=== PATIENT | female | born 1945 | race Caucasian/White ===

== ENCOUNTER 2017-05-24 15:04 | Inpatient (IN) | payer MEDICARE ==
[~2017-05-24] VITALS: Ht 165.1 cm; Wt 75.7 kg
[2017-05-24 15:05] VITALS: BP 144/63; PULSE 76; RESP 16; TEMP 98.7; O2SAT 99
--- NOTE | 2017-05-24 15:24 | PD ---
Physical Exam Time Seen by Provider: 15:22 Narrative 72 y/o female fell 05/01/17, reports that she had an outpatient xray 2 days ago which revealed a L elbow fracture. Vital signs reviewed. Seen at triage desk. Awaiting bed placement. Data Data Last Documented VS Vital Signs Date Time Temp Pulse Resp B/P Pulse Ox O2 Delivery O2 Flow Rate FiO2 05/24/17 15:05 98.7 76 16 144/63 99 Room Air [facility] Medical Record Reviewed: Yes Supervised Visit with DANIELITO: No Jeremiah Caldwell May 24, 2017 15:24
[2017-05-24] MEDS ORDERED: LEVO25TA4 PO (16:05)
[2017-05-24] MEDS ORDERED: LISI40TA PO (16:05)
[2017-05-24] MEDS ORDERED: PROZ20CA11 PO (16:05)
--- NOTE | 2017-05-24 16:19 | RADRPT ---
EXAM DATE/TIME: 05/24/2017 15:48 [facility] COMPARISON: No previous studies available for comparison. INDICATIONS : Left elbow pain, loss of motion MEDICAL HISTORY : None. SURGICAL HISTORY : None. ENCOUNTER: Initial ACUITY: 3 weeks PAIN SCORE: 3/10 LOCATION: Left elbow FINDINGS: There is evidence of an acute fracture involving the radial head with involvement of the articular krishnan rface. There is also evidence of an acute displaced fracture of the capitellum of the distal humerus . Elbow joint effusion is noted. CONCLUSION: 1. Acute displaced fracture involving the capitellum of the distal humerus. 2. Acute fracture involving the radial head. 3. Elbow joint effusion. Sathish Millard MD on May 24, 2017 at 16:14 Board Certified Radiologist. This report was verified electronically.
--- NOTE | 2017-05-24 16:54 | PD ---
HPI Chief Complaint: Injury Time Seen by Provider: 16:53 Travel History International Travel<30 days: No Contact w/Intl Traveler<30days: No Traveled to known affect area: No History of Present Illness HPI 72-year-old female presents to the emergency Department with complaint of a left elbow fracture that she had x-rayed 2 days ago at [facility]. She says the left elbow fracture occurred on May 01 after a fall and she just followed up 2 days ago. She was told to follow up and to the orthopedic doctors office was not able to see her for a week to a week and a half. The patient says she does not have a scheduled appointment at this time because she thought it was too long and decided to come to the emergency department for follow-up. Denies paresthesias, loss of sensation to the affected extremity. Is able to fully flex the left arm, but is unable to fully extend the left arm. Denies fever. Patient reports she has had issues with vomiting for the past few weeks, prior to the fall, and has and is following up with her primary care provider in regards to this issue; reports last vomiting one time this morning and reports vomiting only a few times since the vomiting started. Has been taking exgq-oyl-mrkqptw medications for symptom management. No known allergies. Has no other medical complaints. No other modifying factors or associated signs and symptoms. PFSH Past Medical History Depression: Yes Hypertension: Yes Thyroid Disease: Yes Past Surgical History Surgical History: No Previous Surgery Social History Alcohol Use: No Tobacco Use: No Substance Use: No Allergies-Medications (Allergen,Severity, Reaction): Coded Allergies: No Known Allergies (Unverified , 05/24/17) Reported Meds & Prescriptions Reported Meds & Active Scripts Active Reported Levothyroxine (Levothyroxine Sodium) 25 Mcg Tab Unknown Dose PO DAILY Prozac (Fluoxetine HCl) 20 Mg Cap 20 Mg PO DAILY Lisinopril 40 Mg Tab 40 Mg PO BID Review of Systems Except as stated in HPI: all other systems reviewed are Neg Physical Exam Narrative GENERAL: Well-nourished, well-developed elderly, female patient, in no acute distress; afebrile, nontoxic-appearing SKIN: Warm and dry. HEAD: Atraumatic. Normocephalic. EYES: Pupils equal and round. No scleral icterus. No injection or drainage. ENT: Mucosa pink and moist. Airway patent. NECK: Trachea midline. CARDIOVASCULAR: Regular rate. RESPIRATORY: No accessory muscle use. GASTROINTESTINAL: Rounded. MUSCULOSKELETAL: Left elbow with full flexion and almost full extension; without edema;, erythema, ecchymosis; without tenderness on palpation; with full svp group director strength; sensory intact; 2+ radial pulse. Left Upper extremity supple and nontense with 2+ radial pulse and sensory intact. No obvious deformities. No clubbing. No cyanosis. No edema. NEUROLOGICAL: Awake and alert. Oriented 3. No obvious cranial nerve deficits. Motor grossly within normal limits. Normal speech. PSYCHIATRIC: Appropriate mood and affect; insight and judgment normal. Data Data Last Documented VS Vital Signs Date Time Temp Pulse Resp B/P Pulse Ox O2 Delivery O2 Flow Rate FiO2 05/24/17 15:05 98.7 76 16 144/63 99 Room Air Orders Elbow, Complete (4 Vws) (05/24/17 ) Ct Elbow W/O Contrast (05/24/17 ) Splint Or Brace Apply/Monitor (05/24/17 17:48) Consult Orthopedic (05/24/17 ) Npo After Midnight W/ Po Meds (05/24/17 Dinner) Complete Blood Count With Diff (05/24/17 17:48) Comprehensive Metabolic Panel (05/24/17 17:48) Prothrombin Time / Inr (Pt) (05/24/17 17:48) Act Partial Throm Time (Ptt) (05/24/17 17:48) Electrocardiogram (05/24/17 17:48) Chest, Single Ap (05/24/17 17:48) Iv Access Insert/Monitor (05/24/17 17:48) Sodium Chloride 0.9% Flush (Ns Flush) (05/24/17 18:00) MDM Medical Decision Making Medical Screen Exam Complete: Yes Emergency Medical Condition: Yes Medical Record Reviewed: Yes Differential Diagnosis Elbow fracture, elbow dislocation, medical clearance Narrative Course 72-year-old female with left elbow fracture after fall on May 01. Patient had elbow x-rayed 2 days ago and was told to follow up with orthopedic. She call to schedule an appointment with an orthopedic doctor and they could not see her for a week to week and a half and she thought that was too long so she came to the emergency department for follow-up. Left elbow x-ray ordered in triage. 1645: Left elbow x-ray concludes acute displaced fracture involving the capitellum of the distal humerus, acute fracture involving the radial head, and elbow joint effusion. 1658: Call placed To orthopedic surgeon. 1749: Spoke with JODI Dick for orthopedics, and he recommended to admit the patient to medical with a consult to Dr. Garzon, CT left elbow, nothing by mouth after midnight, and left long-arm splint. Preop orders entered. 1754: Call out to RAMYA placed for admission. 1817: Spoke with RAMYA Guerra; report given and patient admitted. Physician Communication Physician Communication JODI Mariscal ortho RAMYA Guerra Diagnosis Primary Impression: Left elbow fracture Qualified Code: S42.402A - Left elbow fracture, closed, initial encounter Admitting Information Admitting Physician Requests: Admit Jessa Caceres May 24, 2017 16:54
[2017-05-24] MEDS ORDERED: SODIUM CHLORIDE 0.9% FLUSH 10 ML FLUSH IV FLUSH PRN ×2 (18:00→18:30)
--- NOTE | 2017-05-24 18:26 | RADRPT ---
EXAM DATE/TIME: 05/24/2017 18:03 [facility] COMPARISON: No previous studies available for comparison. INDICATIONS : Evaluate for pneumonia, pneumothorax, or communicable disease. Pre op for ORIF of elbow. MEDICAL HISTORY : None. SURGICAL HISTORY : None. ENCOUNTER: Initial ACUITY: 1 day PAIN SCORE: 0/10 LOCATION: Bilateral chest FINDINGS: A single view of the chest demonstrates the lungs to be symmetrically aerated without evidence of mas s, infiltrate or effusion. Small calcified granulomas within the right upper lobe. The cardiomediasti nal contours are unremarkable. Osseous structures are intact. CONCLUSION: No acute disease. Hans Lemus Jr., MD on May 24, 2017 at 18:24 Board Certified Radiologist. This report was verified electronically.
[2017-05-24] MEDS ORDERED: BISACODYL 10 MG SUPP RECTAL PRN (18:30)
[2017-05-24] MEDS ORDERED: NALOXONE HCL 0.4 MG/ML AMP IV PRN (18:30)
[2017-05-24] MEDS ORDERED: diphenhydrAMINE HCL 25 MG CAP PO PRN (18:30)
[2017-05-24] MEDS ORDERED: ACETAMINOPHEN/HYDROcodone 325 MG/5 MG TAB PO PRN (18:30)
[2017-05-24] MEDS ORDERED: ONDANSETRON HCL 4 MG/2 ML VIAL IVP PRN (18:30)
[2017-05-24] MEDS ORDERED: SENNOSIDES 8.6 MG TAB PO PRN (18:30)
[2017-05-24] MEDS ORDERED: ACETAMINOPHEN 325 MG TAB PO PRN (18:30)
[2017-05-24] MEDS ORDERED: LACTULOSE SYRUP 20 GM/30 ML CUP PO PRN (18:30)
[2017-05-24] MEDS ORDERED: MAGNESIUM HYDROXIDE SUSP 30 ML CUP PO PRN (18:30)
[2017-05-24] MEDS ORDERED: diphenhydrAMINE HCL 50 MG/ML VIAL IV PRN (18:30)
[2017-05-24] MEDS ORDERED: MORPHINE SULFATE 4 MG/ML INJ IV PRN ×3 (18:30)
--- NOTE | 2017-05-24 18:36 | HHI.HP ---
[facility] Primary Care Physician Unknown Admission Diagnosis left elbow fracture Diagnoses: Travel History International Travel<30 Days: No Contact w/Intl Traveler <30 Da: No Traveled to Known Affected Are: No History of Present Illness 72-year-old white female with a history hypothyroidism presents emergency room secondary to increased pain the left elbow and having difficulty having an earlier follow-up with orthopedic surgeon. She states that she actually tripped and fell on May 01 sustaining a fracture of the left elbow. She reports since the fall she has not had any other trauma to the area. She denies any numbness over her fingers. She was found to have a displaced fracture here in the emergency room and will be admitted for further surgical intervention with Dr. Kong. Review of Systems Constitutional: DENIES: Fatigue, Fever, Chills, Change in appetite Endocrine: DENIES: Heat/cold intolerance Eyes: DENIES: Blurred vision, Eye pain, Vision loss Ears, nose, mouth, throat: DENIES: Hearing loss, Nasal discharge, Throat pain, Ear Pain, Sinus Pain Respiratory: DENIES: Cough, Shortness of breath Cardiovascular: DENIES: Chest pain, Palpitations, Dyspnea on Exertion, Lower Extremity Edema Gastrointestinal: DENIES: Abdominal pain, Black stools, Bloody stools, Constipation, Diarrhea, Nausea, Vomiting Genitourinary: DENIES: Dysuria Musculoskeletal: COMPLAINS OF: Joint pain ( left elbow pain), DENIES: Muscle aches, Stiffness Integumentary: DENIES: Rash Hematologic/lymphatic: DENIES: Bruising, Lymphadenopathy Immunologic/allergic: DENIES: Eczema Neurologic: DENIES: Headache, Localized weakness, Paresthesias Psychiatric: DENIES: Anxiety, Depression, Suicidal Ideation Past Family Social History Past Medical History Hypothyroidism Hypertension Depression Past Surgical History None Reported Medications Levothyroxine (Levothyroxine Sodium) 25 Mcg Tab Unknown Dose PO DAILY Prozac (Fluoxetine HCl) 20 Mg Cap 20 Mg PO DAILY Lisinopril 40 Mg Tab 40 Mg PO BID Allergies: Coded Allergies: No Known Allergies (Unverified , 05/24/17) Family History None per patient Social History Does not smoke cigarettes or drink alcohol. Physical Exam Vital Signs Vital Signs Date Time Temp Pulse Resp B/P Pulse Ox O2 Delivery O2 Flow Rate FiO2 05/24/17 15:05 98.7 76 16 144/63 99 Room Air Physical Exam GENERAL: This is a well-nourished, well-developed patient, in no apparent distress. SKIN: No rashes, ecchymoses or lesions. Cool and dry. HEAD: Atraumatic. Normocephalic. No temporal or scalp tenderness. EYES: Pupils equal round and reactive. Extraocular motions intact. No scleral icterus. No injection or drainage. ENT: Nose without bleeding, purulent drainage or septal hematoma. Throat without erythema, tonsillar hypertrophy or exudate. Uvula midline. Airway patent. NECK: Trachea midline. No JVD or lymphadenopathy. Supple, nontender, no meningeal signs. CARDIOVASCULAR: Regular rate and rhythm RESPIRATORY: Clear to auscultation. Breath sounds equal bilaterally. No wheezes , rales, or rhonchi. GASTROINTESTINAL: Abdomen soft, non-tender, nondistended. No hepato-splenomegaly , or palpable masses. No guarding. Normoactive bowel sounds MUSCULOSKELETAL: Extremities without clubbing, cyanosis, or edema. Left upper extremity in a splint, neurovascular intact was able to move all left fingers. No calf tenderness. Negative Homans sign bilaterally. NEUROLOGICAL: Awake and alert to person place time and situation. Cranial nerves II through XII intact. Motor and sensory grossly within normal limits. Five out of 5 muscle strength in all muscle groups. Normal speech. Imaging Last Impressions Elbow X-Ray 05/24/17 0000 Signed Impressions: Service Date/Time: April 15:48 - CONCLUSION: 1. Acute displaced fracture involving the capitellum of the distal humerus. 2. Acute fracture involving the radial head. 3. Elbow joint effusion. Sathish Millard MD Assessment and Plan Problem List: (1) Left elbow fracture ICD Code: S42.402A Status: Acute Assessment and Plan 1. Acute left elbow fracture, displaced involving the distal humerus and radial headcontinue pain control, admit for surgical intervention with Dr. Kong. Nothing by mouth after midnight. 2. Hypertension, chronic essentialresume home antihypertensive lisinopril 3. Hypothyroidismresume Synthroid 4. DVT prophylaxisSCDs Physician Certification 2 Midnight Certification Type: Admission for Inpatient Services Order for Inpatient Services The services are ordered in accordance with Medicare regulations or non- Medicare payer requirements, as applicable. In the case of services not specified as inpatient-only, they are appropriately provided as inpatient services in accordance with the 2-midnight benchmark. Estimated LOS (days): 2 days is the estimated time the patient will need to remain in the hospital, assuming treatment plan goals are met and no additional complications. Post-Hospital Plan: Not yet determined Problem Qualifiers (1) Left elbow fracture: Qualified Code: S42.402A - Left elbow fracture, closed, initial encounter Cierar Buckley MD May 24, 2017 18:36
[2017-05-24] MEDS ORDERED: ENALAPRILAT 1.25 MG/ML VIAL IV PRN (18:45)
[2017-05-24 19:00] VITALS: BP 145/86; PULSE 80; RESP 16; TEMP 97.4; O2SAT 98
[2017-05-24 19:16] VITALS: BP 132/61; PULSE 71; RESP 16; TEMP 98.5; O2SAT 97
--- NOTE | 2017-05-24 19:47 | RADRPT ---
EXAM DATE/TIME: 05/24/2017 19:20 [facility] COMPARISON: No previous studies available for comparison. INDICATIONS : Left arm pain, known fracture. RADIATION DOSE: 11.91 CTDIvol (mGy) MEDICAL HISTORY : Hypertension. SURGICAL HISTORY : None. ENCOUNTER: Initial ACUITY: 1 week PAIN SCALE: 8/10 LOCATION: Left elbow TECHNIQUE: Volumetric scanning of the elbow was performed. Using automated exposure control and adjustment of t he mA and/or kV according to patient size, radiation dose was kept as low as reasonably achievable to obtain optimal diagnostic quality images. DICOM format image data is available electronically for r eview and comparison. FINDINGS: The distal humerus is fractured and rotated approximately 180 with the articular surface now directe d proximally. There is a mildly displaced fracture of the radial head. Several small bone fragments a re present in the radial aspect of the elbow joint. The proximal ulna appears intact. The fracture do es extend into the trochlea with mild displacement. No elbow joint effusion. CONCLUSION: 1. Fracture capitellum with rotation of the fracture fragment approximately 180. Mildly displaced fr acture radial head. Fracture extends into the trochlea of the distal humerus as well. Proximal ulna a ppears intact. Jude Delong MD on May 24, 2017 at 19:40 Board Certified Radiologist. This report was verified electronically.
[2017-05-24 19:52] LABS: AUTOMATED NEUTROPHIL # 5.1 TH/MM3 (1.8-7.7); BASOPHIL # 0.1 TH/MM3 (0-0.2); BASOPHIL % 0.6 % (0.0-2.0); EOSINOPHIL % 0.5 % (0.0-4.0); HEMATOCRIT 39.1 % (35.0-46.0); HEMO FLAGS DIFF FINAL; LYMPH % 32.8 % (9.0-44.0); LYMPHOCYTE # 2.9 TH/MM3 (1.0-4.8); MEAN CELL VOLUME 84.6 FL (80.0-100.0); MEAN CORPUSCULAR HEMOGLOBIN 30.1 PG (27.0-34.0); MEAN CORPUSCULAR HGB CONC 35.6 % (32.0-36.0); MONO % 8.5 % (0.0-8.0); NEUT % 57.6 % (16.0-70.0); PLATELET COUNT 415 TH/MM3 (150-450); RED BLOOD COUNT 4.63 MIL/MM3 (4.00-5.30); RED CELL DISTRIBUTION WIDTH 12.7 % (11.6-17.2); WHITE BLOOD COUNT 8.9 TH/MM3 (4.0-11.0)
[2017-05-24 20:12] LABS: APTT (PATIENT) 25.4 SEC (24.3-30.1); INTERNATIONAL NORMALIZED RATIO 0.9 RATIO; PROTHROMBIN TIME - PATIENT 10.4 SEC (9.8-11.6)
[2017-05-24] MEDS: DOCUSATE SODIUM 50 MG/SENNA 8.6 MG TAB PO SCH (20:50)
[2017-05-24] MEDS: LISINOPRIL 20 MG TAB PO SCH (20:50)
[2017-05-24] MEDS: SODIUM CHLORIDE 0.9% FLUSH 10 ML FLUSH IV FLUSH SCH (20:51)
[2017-05-24 21:03] LABS: ANION GAP 10 MEQ/L (5-15); BICARBONATE 25.2 MEQ/L (21.0-32.0); BLOOD UREA NITROGEN 26 MG/DL (7-18); CHLORIDE 95 MEQ/L (98-107); POTASSIUM 4.3 MEQ/L (3.5-5.1); SODIUM (NA) 130 MEQ/L (136-145)
[2017-05-24 21:04] LABS: AST (GOT) 18 U/L (15-37); GLOMERULAR FILTRATION RATE 45 ML/MIN (>89)
[2017-05-24 21:07] LABS: ALKALINE PHOSPHATASE 137 U/L (45-117); ALT (GPT) 15 U/L (10-53); TOTAL BILIRUBIN ADULT 0.2 MG/DL (0.2-1.0)
--- NOTE | 2017-05-24 21:49 | EKG ---
Date Performed: 05/24/2017 Time Performed: 18:47:29 PTAGE: 72 years EKG: Sinus rhythm NORMAL ECG NO PREVIOUS TRACING DOCTOR: Alexandru Balbuena Interpretating Date/Time 05/24/2017 21:47:55
[2017-05-25] VITALS (8 sets, daily range): BP systolic 109–144; BP diastolic 53–69; PULSE 60–83; RESP 16–18; TEMP 96.6–97.4; O2SAT 95–98
[2017-05-25] MEDS: LACTATED RINGER'S 1000 ML INJ 1,000 ML IV SCH ×2 (00:39→08:01)
[2017-05-25] MEDS ORDERED: POVIDONE IODINE 5% (ANTISEPSIS KIT) 4 APPLICATIONS EACH NARE PRN (02:00)
[2017-05-25] MEDS ORDERED: SODIUM CHLORID 0.9% 500 ML IV PRN (02:00)
[2017-05-25] MEDS ORDERED: INSULIN HUMAN REGULAR 1,000 UNITS/10 ML VIAL SQ PRN (02:00)
[2017-05-25] MEDS ORDERED: CHLORHEXIDINE GLUCONATE 2 % 1 PACK (2 CLOTHS) TOPICAL PRN (02:00)
[2017-05-25] MEDS ORDERED: LACTATED RINGER'S 1000 ML IV PRN (02:00)
[2017-05-25] MEDS ORDERED: METOPROLOL TARTRATE 25 MG TAB PO PRN (02:00)
[2017-05-25] MEDS: DOCUSATE SODIUM 50 MG/SENNA 8.6 MG TAB PO SCH ×2 (06:40→20:06)
[2017-05-25] MEDS: FLUoxetine HCL 20 MG CAP PO SCH (06:40)
[2017-05-25] MEDS: LISINOPRIL 20 MG TAB PO SCH ×2 (07:59→20:06)
[2017-05-25] MEDS: SODIUM CHLORIDE 0.9% FLUSH 10 ML FLUSH IV FLUSH SCH ×2 (07:59→20:06)
--- NOTE | 2017-05-25 08:39 | HHI.PR ---
Subjective Remarks Pain controlled Objective Vitals Vital Signs Date Time Temp Pulse Resp B/P Pulse Ox O2 Delivery O2 Flow Rate FiO2 05/25/17 07:37 97.4 60 16 136/64 97 05/25/17 04:00 97.2 76 16 135/63 95 05/25/17 00:00 97.0 71 18 109/53 98 05/24/17 19:16 98.5 71 16 132/61 97 Room Air 05/24/17 19:00 97.4 80 16 145/86 98 05/24/17 15:05 98.7 76 16 144/63 99 Room Air I/O 05/24/17 05/24/17 05/24/17 05/25/17 05/25/17 05/25/17 07:00 15:00 23:00 07:00 15:00 23:00 Intake Total 480 ml 480 ml Balance 480 ml 480 ml Intake Oral 480 ml 480 ml # Voids 0 3 # Bowel Movements 0 0 Result Diagram: 05/24/17190905/24/171909 Objective Remarks GENERAL: This is a well-nourished, well-developed patient, in no apparent distress. CARDIOVASCULAR: Regular rate and rhythm RESPIRATORY: Clear to auscultation. Breath sounds equal bilaterally. No wheezes , rales, or rhonchi. GASTROINTESTINAL: Abdomen soft, non-tender, nondistended. Normal active bowel sounds MUSCULOSKELETAL: Extremities without clubbing, cyanosis, or edema. Left arm elevated in splint, neurovascularly intact NEURO: Alert & Oriented x4 to person, place, time, situation. Moves all ext x4 A/P Problem List: (1) Left elbow fracture ICD Code: S42.402A Status: Acute Assessment and Plan 1. Acute left elbow fracture, displaced involving the distal humerus and radial headcontinue pain control, for surgical intervention with Dr. Garzon today. 2. Hypertension, chronic essentialcontinue home antihypertensive lisinopril 3. Hypothyroidismresume Synthroid 4. DVT prophylaxisSCDs Discharge Planning Home when cleared by Dr. Garzon. Problem Qualifiers (1) Left elbow fracture: Qualified Code: S42.402A - Left elbow fracture, closed, initial encounter Cierra Buckley MD May 25, 2017 08:39
[2017-05-25] MEDS ORDERED: VANCOMYCIN HCL 1000 MG VIAL ONE (10:00)
[2017-05-25] MEDS ORDERED: SODIUM CHLOR 0.9% 250 ML INJ 250 ML ONE (10:00)
[2017-05-25] MEDS ORDERED: ceFAZolin 2 GM PREMIX 50 ML ONE (10:01)
[2017-05-25] MEDS ORDERED: ACETAMINOPHEN 1000 MG/100 ML VIAL IV ONE (10:07)
[2017-05-25] MEDS ORDERED: DEXAMETHASONE SOD PHOS 4 MG/ML VIAL ONE (10:08)
[2017-05-25] MEDS ORDERED: fentaNYL CITRATE 250 MCG/5 ML AMP ONE (10:08)
[2017-05-25] MEDS ORDERED: FAMOTIDINE 20 MG/2 ML VIAL ONE (10:08)
[2017-05-25] MEDS ORDERED: MIDAZOLAM HCL 2 MG/2 ML VIAL ONE (10:08)
[2017-05-25] MEDS ORDERED: GENTAMICIN SULFATE 80 MG/2 ML VIAL IRRIGATION ONE (10:40)
[2017-05-25] MEDS ORDERED: HYDR-3288 PO (11:29)
[2017-05-25] MEDS ORDERED: ACETAMINOPHEN/HYDROcodone 325 MG/7.5 MG TAB PO PRN (11:30)
[2017-05-25] MEDS ORDERED: MORPHINE SULFATE 4 MG/ML INJ IV PUSH PRN (11:30)
[2017-05-25] MEDS ORDERED: Post-op Orders (for Pharmacy) MISC XX ONE (11:30)
--- NOTE | 2017-05-25 11:34 | PD.OP ---
cc: Neil Kong MD Operative Report Date of Surgery: May 25, 2017 Preoperative Diagnosis: Left distal humerus intra-articular fracture Postoperative Diagnosis: Procedure: Open reduction and fixation left distal humerus Anesthesia: Gen. Surgeon: Neil Kong Membership Manager(s): LISANDRO Cardoso PA-C The surgical procedure was assisted by my physician therapeutic recreation assistant. My P.A. presence was necessary throughout this case for the manipulation and positioning of the surgical extremity. My P.A. was assisting me throughout the duration of this procedure. The skill set of a physician therapeutic recreation assistant was medically necessary to complete this procedure. During the surgical case the scanning tech was working at the back table and the physician therapeutic recreation assistant was directly assisting me. Operation and Findings: Patient was seen and evaluated preoperatively and found to have a displaced intra-articular left distal humerus fracture. Informed consent was obtained after detailed discussion of risk and benefits including bleeding, infection, injury to arteries, nerves, and blood vessels, weakness and numbness of hand, and tendon rupture. Informed consent was obtained. Patient received IV antibiotics prior to incision. Timeout procedure was performed. Left arm was prepped with alcohol followed by Hibiclens and draped usual sterile fashion. A 3 inch incision was made over the lateral aspect of the distal humerus. Subcutaneous tissue dissected with Bovie. The brachial radialis muscle was elevated off the anterior aspect of the humerus. The joint capsule was incised. The lateral aspect of the elbow joint was visualized. There was a large fragment of the capitellum which was flipped 90. This fragment was removed. There was some granulation tissue and callus formation present. Curettes were used to debride the fracture site. The elbow was gently manipulated because she was developing a contracture. At this point the capsular fragment was reduced. Fracture keyed in anatomic alignment. K wires were used to hold provisional fixation. Fluoroscopy confirmed excellent alignment of fracture. 3 guidepins for the Synthes 3.0 headless screws were placed from anterior to posterior. Fluoroscopy confirmed appropriate guidepin placement. The screw lengths were measured. Cannulated drill was placed over the guidepins. 3 appropriate length screws were now placed. Good compression was applied. The screws were countersunk to avoid articular surface irritation. K wires were removed. Final fluoroscopy revealed excellent of fracture with well-placed hardware. The wound was thoroughly irrigated with sterile saline. Subcutaneous tissue was closed with 3-0 Vicryl and skin was closed with 3-0 nylon. Sterile dressings were applied with Xeroform, 4 x 4, soft roll, and a well padded volar splint. Patient was awakened and transferred to recovery room in stable condition Neil Kogn MD May 25, 2017 11:33
--- NOTE | 2017-05-25 11:35 | PD.ORT.PN ---
Subjective Subjective Remarks POD 0 s/p ORIF left humerus lateral condyle stable in PACU Objective Vitals Vital Signs Date Time Temp Pulse Resp B/P Pulse Ox O2 Delivery O2 Flow Rate FiO2 05/25/17 07:37 97.4 60 16 136/64 97 05/25/17 04:00 97.2 76 16 135/63 95 05/25/17 00:00 97.0 71 18 109/53 98 05/24/17 19:16 98.5 71 16 132/61 97 Room Air 05/24/17 19:00 97.4 80 16 145/86 98 05/24/17 15:05 98.7 76 16 144/63 99 Room Air I/O 05/24/17 05/24/17 05/24/17 05/25/17 05/25/17 05/25/17 07:00 15:00 23:00 07:00 15:00 23:00 Intake Total 480 ml 480 ml Balance 480 ml 480 ml Intake Oral 480 ml 480 ml # Voids 0 3 # Bowel Movements 0 0 Result Diagram: 05/24/17190905/24/171909 Other Results Laboratory Tests Test 05/24/17 19:10 Prothrombin Time 10.4 SEC (9.8-11.6) Prothromb Time International 0.9 RATIO Ratio Imaging Last 24 hours Impressions Chest X-Ray 05/24/17 7018 Signed Impressions: Service Date/Time: April 18:03 - CONCLUSION: No acute disease. Hans Lemus Jr., MD Objective Remarks LUE: +long arm splint. intact. good cap refill. Assessment & Plan Assessment and Plan 1) Left Humeral Lateral Condyle Fracture - POD 0 -NWB -maintain splint at all times -plan for home today or tomorrow when stable -f/u with Raynn or [facility] in 2 weeks -ortho cleared for DC -scripts on chart Irwin Virgen May 25, 2017 11:35
[2017-05-25] MEDS ORDERED: DO NOT ADM ANY ANTICOAGULANT DRUGS PRN (11:45)
--- NOTE | 2017-05-25 12:00 | RADRPT ---
EXAM DATE/TIME: 05/25/2017 11:13 [facility] COMPARISON: ELBOW LEFT COMPLETE (4 VWS), May 24, 2017, 15:48. INDICATIONS : Screw placement left elbow. MEDICAL HISTORY : Hypertension. Fracture involving the capitellum of the distal humerus SURGICAL HISTORY : None. ENCOUNTER: Subsequent ACUITY: 2 days PAIN SCORE: Non-responsive. LOCATION: Left Elbow. FINDINGS: Surgical screws traverse the lateral humeral condyle and there is gross anatomical alignment of the f racture fragments. CONCLUSION: Intact immediate postsurgical changes. Jeremiah Herman MD on May 25, 2017 at 11:58 Board Certified Radiologist. This report was verified electronically.
[2017-05-25] MEDS: ACETAMINOPHEN/HYDROcodone 325 MG/10 MG TAB PO PRN ×3 (13:20→23:03)
--- NOTE | 2017-05-25 13:39 | MB ---
cc: MICHAEL OSORIO DATE OF CONSULTATION 05/24/2017 REASON FOR CONSULTATION Left distal humerus intra-articular fracture. CONSULTING PHYSICIAN Dr. Cierra Buckley HISTORY Anisha is a 72-year-old female who fell approximately three weeks ago. She landed on her left arm. She had immediate left arm pain. She has had extremely limited use of her arm over the past three weeks. Yesterday her convinced her to go to the emergency room for evaluation. She presented to the emergency room where x-rays revealed a left distal humerus intra-articular fracture. Pain is worse with movement and is improved with rest. She denies any dizziness, syncope or loss of consciousness. PAST MEDICAL HISTORY Illnesses: 1. Hypothyroidism 2. Hypertension 3. Depression Surgeries: None MEDICATIONS Medications include: 1. Levothyroxine 2. Prozac 3. Lisinopril ALLERGIES None FAMILY HISTORY Noncontributory SOCIAL HISTORY The patient denies alcohol, tobacco or drug use. REVIEW OF SYSTEMS The patient denies headache, visual changes, neck pain, chest pain, shortness of breath, abdominal pain, nausea, vomiting or recent weight loss. She complains of left elbow pain. PHYSICAL EXAMINATION The patient is a pleasant 72-year female in no acute distress. She is awake and alert. She is alert and oriented x3. She appears well-developed and well-nourished. VITAL SIGNS: Temperature 97.4, pulse 60, respirations 16, blood pressure 136/64, O2 sat 97% on room air. HEAD: The patient is normocephalic. EYES: Pupils are equal. NECK: Soft and nontender. Trachea is midline. ABDOMEN: Soft, nontender, nondistended. EXTREMITIES: Examination of the left arm reveals no tenderness around her shoulder, wrist or fingers. She has intact sensation in all fingers. Radial pulses palpable. She has minimal swelling around the elbow. She has very limited elbow range of motion, elbow range of motion is from approximately 60 degrees up to 90 degrees. Forearm compartments are soft. Examination of the right arm reveals no pain with shoulder or wrist motion. Skin is intact. Radial pulses palpable. Sensation is intact in all fingers. Examination of bilateral lower extremities reveals no pain with hip, knee or ankle motion. Skin is intact. Dorsalis pedis pulses are palpable. X-RAYS X-rays and CT scan of left elbow were reviewed. X-rays reveal a displaced left distal humerus intra-articular fracture. IMPRESSION 1. Hypertension 2. Displaced left distal humerus intra-articular fracture. 3. Hypothyroidism PLAN Treatment option are discussed with the patient. At this point, I would recommend open reduction, internal fixation of left distal humerus. The risks of surgery include bleeding, infection, injury to arteries, nerves and blood vessels, weakness or numbness of hand, elbow stiffness, loss of motion, elbow arthritis, painful hardware, as well as medical complications including blood clot, stroke, heart attack and . All questions were answered. I will plan on surgery today. A mid-level provider in my office, nurse practitioner or PA, may see this patient on a follow-up basis and continue to implement the objective of this plan including: Starting or adjusting medications, injections of muscle, tendon, bursa or joints, cast application, orthotic or brace application, physical therapy, further radiographic studies including x-ray, MRI, CT, ultrasounds or bone scan, vascular studies, neurologic studies, or other specialist consultations, and proceeding with surgical management as appropriate. MD ZEKE Mg/LINO /11:36 AM /1:24 PM
[2017-05-25] MEDS ORDERED: PHENYLEPH/NS 1000 MCG/10 ML SYR IV ONE (14:36)
[2017-05-25] MEDS ORDERED: PROPOFOL 200 MG/20 ML AMP IV ONE (14:36)
[2017-05-25] MEDS ORDERED: ONDANSETRON HCL 4 MG/2 ML VIAL IV PUSH ONE (14:36)
[2017-05-25] MEDS ORDERED: NEOSTIGMINE 3 MG/3 ML SYR IV ONE (14:36)
[2017-05-25] MEDS ORDERED: LACTATED RINGER'S 1000 ML INJ 1,000 ML IV ONE (14:37)
[2017-05-25] MEDS: ceFAZolin 2 GM PREMIX 50 ML IV SCH (17:17)
[2017-05-26 00:35] VITALS: BP 102/53; PULSE 81; RESP 17; TEMP 96.8; O2SAT 94
[2017-05-26] MEDS: LACTATED RINGER'S 1000 ML INJ 1,000 ML IV SCH (02:55)
[2017-05-26] MEDS: ACETAMINOPHEN/HYDROcodone 325 MG/10 MG TAB PO PRN ×2 (02:56→08:50)
[2017-05-26] MEDS: ceFAZolin 2 GM PREMIX 50 ML IV SCH (02:57)
[2017-05-26 04:35] VITALS: BP 116/53; PULSE 75; RESP 17; TEMP 96.8; O2SAT 96
[2017-05-26 08:00] VITALS: BP 111/93; PULSE 69; RESP 16; TEMP 97.6; O2SAT 96
[2017-05-26] MEDS: FLUoxetine HCL 20 MG CAP PO SCH (08:49)
[2017-05-26] MEDS: LISINOPRIL 20 MG TAB PO SCH (08:49)
[2017-05-26] MEDS: DOCUSATE SODIUM 50 MG/SENNA 8.6 MG TAB PO SCH (08:51)
[2017-05-26] MEDS: SODIUM CHLORIDE 0.9% FLUSH 10 ML FLUSH IV FLUSH SCH (08:51)
[2017-05-26] MEDS ORDERED: PNEUMOCOCCAL POLYVALENT INJ 25 MCG/0.5 ML SYR IM ONE (09:00)
--- NOTE | 2017-05-26 10:34 | PD.ORT.PN ---
Subjective Subjective Remarks POD 1- left elbow ORIF Objective Vitals Vital Signs Date Time Temp Pulse Resp B/P Pulse Ox O2 Delivery O2 Flow Rate FiO2 05/26/17 08:00 97.6 69 16 111/93 96 05/26/17 04:35 96.8 75 17 116/53 96 05/26/17 00:35 96.8 81 17 102/53 94 05/25/17 21:59 98 High Flow Nasal Cannula 2.00 05/25/17 20:40 97.4 83 18 121/56 96 05/25/17 16:03 Room Air 05/25/17 16:03 97.0 63 16 111/69 98 05/25/17 15:29 97 Nasal Cannula 2.00 05/25/17 13:23 96.6 83 16 144/63 96 05/25/17 12:55 97.7 86 16 151/75 98 Nasal Cannula 2 05/25/17 12:45 87 16 152/77 97 Nasal Cannula 2 05/25/17 12:30 88 16 155/80 99 Nasal Cannula 3 05/25/17 12:15 89 15 149/71 97 Nasal Cannula 3 05/25/17 12:00 91 15 138/66 98 Simple Mask 7 05/25/17 11:50 97.0 100 20 123/57 95 Simple Mask 7 I/O 05/25/17 05/25/17 05/25/17 05/26/17 05/26/17 05/26/17 07:00 15:00 23:00 07:00 15:00 23:00 Intake Total 480 ml 1340 ml 480 ml 240 ml Output Total 500 ml Balance 480 ml 840 ml 480 ml 240 ml Intake Oral 480 ml 240 ml 480 ml 240 ml IV Total 100 ml Other 1000 ml Output Urine Total 400 ml Estimated Blood Loss 100 ml # Voids 3 2 2 1 # Bowel Movements 0 1 0 0 Result Diagram: 05/24/17190905/24/171909 Imaging Last 24 hours Impressions Chest X-Ray 05/24/17 1048 Signed Impressions: Service Date/Time: April 18:03 - CONCLUSION: No acute disease. Hans Lemus Jr., MD Objective Remarks LUE: +long arm splint. neuro intact. good cap refill. Assessment & Plan Assessment and Plan 1) Left Humeral Lateral Condyle Fracture - POD 1 -NWB -maintain splint at all times -plan for home today -f/u with Ryann or PA in 2 weeks -ortho cleared for DC -scripts on chart Sedrick Carpio Jr., MD May 26, 2017 10:34
--- NOTE | 2017-05-28 11:21 | HHI.DS ---
Discharge Summary Admission Date May 24, 2017 at 18:19 Discharge Date: May 26, 2017 Admitting Diagnosis left elbow fracture (1) Left elbow fracture ICD Code: S42.402A Procedures patient underwent surgical intervention for fracture of left elbow. Please see report. Brief History - From Admission 72-year-old white female with a history hypothyroidism presents emergency room secondary to increased pain the left elbow and having difficulty having an earlier follow-up with orthopedic surgeon. She states that she actually tripped and fell on May 01 sustaining a fracture of the left elbow. She reports since the fall she has not had any other trauma to the area. She denies any numbness over her fingers. She was found to have a displaced fracture here in the emergency room and will be admitted for further surgical intervention with Dr. Garzon. CBC/BMP: 05/24/17190905/24/17 191 Imaging Last Impressions Elbow X-Ray 05/25/17 0000 Signed Impressions: Service Date/Time: Thursday, May 25, 2017 11:13 - CONCLUSION: Intact immediate postsurgical changes. Jeremiah Herman MD Chest X-Ray 05/24/17 1748 Signed Impressions: Service Date/Time: , May 24, 2017 18:03 - CONCLUSION: No acute disease. Hans Lemus Jr., MD Upper Extremity CT 05/24/17 0000 Signed Impressions: Service Date/Time: , May 24, 2017 19:20 - CONCLUSION: 1. Fracture capitellum with rotation of the fracture fragment approximately 180. Mildly displaced fracture radial head. Fracture extends into the trochlea of the distal humerus as well. Proximal ulna appears intact. Jude Delong MD PE at Discharge GENERAL: This is a well-nourished, well-developed patient, in no apparent distress. CARDIOVASCULAR: Regular rate and rhythm RESPIRATORY: Clear to auscultation. Breath sounds equal bilaterally. No wheezes , rales, or rhonchi. GASTROINTESTINAL: Abdomen soft, non-tender, nondistended. Normal active bowel sounds MUSCULOSKELETAL: Extremities without clubbing, cyanosis, or edema. Left arm elevated in splint,perfusion and sensation intact. NEURO: Alert & Oriented x4 to person, place, time, situation. Moves all ext x4 Pt update on day of discharge patient feeling well. Denies any chest pain or shortness of breath. Like to go home. Hospital Course patient underwent surgical repair of left elbow fracture. Please see report. Patient recovered as expected. She will continue to have splint on left arm, keep elevated as possible. Follow-up with orthopedics as outpatient. For problem a summary from most recent progress note, please see below. 1. Acute left elbow fracture, displaced involving the distal humerus and radial headcontinue pain control, for surgical intervention with Dr. Garzon today. 2. Hypertension, chronic essentialcontinue home antihypertensive lisinopril 3. Hypothyroidismresume Synthroid 4. DVT prophylaxisSCDs Pt Condition on Discharge: Good Discharge Disposition: Discharge Home Discharge Time: <= 30 minutes Discharge Instructions DIET: Follow Instructions for: Heart Healthy Diet Activities you can perform: See Additionl Instruction Other Activity Instructions: maintain splint at all times. do not use affected arm Follow up Referrals: Orthopedics - 2 Weeks @ [facility] with Neil Garzon MD PCP Follow-up - 1 Week New Medications: Hydrocodone-Acetaminophen (Holiday) 7.5-325 mg Tab 1 TAB PO Q4H PRN PAIN #50 Ref 0 TAB Continued Medications: Fluoxetine (Prozac) 20 Mg Cap 20 MG PO DAILY #30 Ref 0 CAP Levothyroxine (Levothyroxine) 25 Mcg Tab Unknown Dose PO DAILY Thyroid #30 Ref 0 TAB Lisinopril (Lisinopril) 40 Mg Tab 40 MG PO BID Blood Pressure Management #30 Ref 0 TAB Juan David Keys MD May 28, 2017 11:21
== END 2017-05-26 12:46 | disposition home or self-care (01) | DRG 494 ==
LOC: NEPK 15:04 → NEDA 18:19 → N06B 19:48
PROVIDERS: ADMIT Internal Medicine; ATTEND Internal Medicine
PROC: 0PSG04Z Reposition Left Humeral Shaft with Internal Fixation Device, Open Approach (ICD-10-PCS; principal; 2017-05-24)
DX: S42.402A Unspecified fracture of lower end of left humerus, initial encounter for closed fracture (principal); I10 Essential (primary) hypertension; E03.9 Hypothyroidism, unspecified; F32.9 Major depressive disorder, single episode, unspecified; W19.XXXA Unspecified fall, initial encounter; Y92.9 Unspecified place or not applicable
CPT/HCPCS: 71010; 73070; 73080; 73200; 76000; 80053; 85025; 85610; 85730; 90732; 93005; 94150; C1713; J0131; J0690; J1100; J1580; J2250; J2370; J2405; J2710; J3010; J3370; J7050; J7120